=== PATIENT | female | born 1965 | race Caucasian/White ===

== ENCOUNTER → 2022-01-23 | Outpatient (CLI) | payer MEDICARE, OTHER ==
--- NOTE | 2022-01-23 11:44 | US ---
EXAMINATION TYPE: US kidneys/renal and bladder DATE OF EXAM: 01/23/2022 COMPARISON: Prior renal ultrasound May 29, 2014 CLINICAL HISTORY: N18.3 CKD STAGE 3. CKD. renal failure EXAM MEASUREMENTS: Right Kidney: 7.5 x 3.5 x 3.4 cm Left Kidney: 10.3 x 4.0 x 4.3 cm Right Kidney: atrophic, lobulated contour Left Kidney: no evidence of hydronephrosis Bladder: wnl Bilateral Jets seen: no The urinary bladder is adequately distended. Bilateral ureteral jets are not seen. Asymmetric dimini shed size right kidney redemonstrated. No concerning solid or cystic masses present on images saved. No hydronephrosis seen bilaterally. IMPRESSION: No hydronephrosis seen bilaterally.
== END | disposition home or self-care (01) ==
LOC: RADUSWWP 10:58
PROVIDERS: ATTEND Internal Medicine Nephrology
DX: N18.30 Chronic kidney disease, stage 3 unspecified (principal)
CPT/HCPCS: 76770